=== PATIENT | male | born 1990 | race Caucasian/White ===

== ENCOUNTER 2016-11-28 01:18 | Emergency (ER) | payer BC ==
[2016-11-28] MEDS ORDERED: Albuterol/Ipratropium 3.0-0.5 MG/3 ML Neb Soln NEB ONE (01:20)
[2016-11-28] MEDS ORDERED: methylPREDNISolone Sodium Succinate 125 MG/2 ML SDV IM ONE (01:24)
--- NOTE | 2016-11-28 01:26 | EDM.PDOC ---
ED HPI GENERAL MEDICAL PROBLEM - General Chief Complaint: Respiratory Problem Stated Complaint: ASMATHA Time Seen by Provider: 11/28/16 01:24 Source of Information: Reports: Patient - History of Present Illness INITIAL COMMENTS - FREE TEXT/NARRATIVE: HISTORY AND PHYSICAL: History of present illness: Patient with history of asthma presents with shortness of breath or wheeze since 5 PM, he is out of his rescue inhaler at home No fever nausea vomiting chills sweats no chest pain headache dizziness or palpitation no bowel or urine symptoms Review of systems: As per history of present illness and below otherwise all systems reviewed and negative. Past medical history: As per history of present illness and as reviewed below otherwise noncontributory. Surgical history: As per history of present illness and as reviewed below otherwise noncontributory. Social history: No reported history of drug or alcohol abuse. Family history: As per history of present illness and as reviewed below otherwise noncontributory. Physical exam: HEENT: Atraumatic, normocephalic, pupils reactive, negative for conjunctival pallor or scleral icterus, mucous membranes moist, throat clear, neck supple, nontender, trachea midline. Lungs: Clear to auscultation, breath sounds equal bilaterally, chest nontender. Post DuoNeb Heart: S1S2, regular, negative for clicks, rubs, or JVD. Abdomen: Soft, nondistended, nontender. Negative for masses or hepatosplenomegaly. Negative for costovertebral tenderness. Pelvis: Stable nontender. Genitourinary: Deferred. Rectal: Deferred. Extremities: Atraumatic, negative for cords or calf pain. Neurovascular unremarkable. Neuro: Awake, alert, oriented. Cranial nerves II through XII unremarkable. Cerebellum unremarkable. Motor and sensory unremarkable throughout. Exam nonfocal. Diagnostics: []Chest 2 views Therapeutics: []DuoNeb Solu-Medrol 125 mg IM Albuterol HFA Medrol Dosepak Impression: []Asthma exacerbation Definitive disposition and diagnosis as appropriate pending reevaluation and review of above. no pain Pain Score (Numeric/FACES): 0 - Related Data Allergies Allergy/AdvReac Type Severity Reaction Status Date / Time amoxicillin Allergy Other Verified 11/28/16 01:25 Home Meds: Home Meds . [No Known Home Meds] 12/16/14 [History] Social & Family History - Tobacco Use Smoking Status *Q: Never Smoker - Recreational Drug Use Recreational Drug Use: No ED ROS GENERAL - Review of Systems Review Of Systems: ROS reveals no pertinent complaints other than HPI. ED EXAM, GENERAL - Physical Exam Exam: See Below Course - Vital Signs Last Recorded V/S: Last Vital Signs Temp 36.4 C 11/28/16 01:25 Pulse 120 H 11/28/16 01:25 Resp 24 H 11/28/16 01:25 BP 154/89 H 11/28/16 01:25 Pulse Ox 93 L 11/28/16 01:25 - Orders/Labs/Meds Orders: Active Orders 24 hr Category Date Time Status RT Aerosol Therapy [RC] ASDIRECTED Care 11/28/16 01:21 Active Chest 2V [CR] Stat Exams 11/28/16 01:24 Taken Meds: Medications Discontinued Medications Generic Name Dose Route Start Last Admin Trade Name Freq PRN Reason Stop Dose Admin Albuterol/Ipratropium 3 ml 11/28/16 01:20 11/28/16 01:26 Duoneb 3.0-0.5 Mg/3 Ml NEB 11/28/16 01:21 3 ml ONETIME ONE Administration Methylprednisolone Sodium Succinate 125 mg 11/28/16 01:24 11/28/16 01:28 Solu-Medrol IM 11/28/16 01:25 125 mg ONETIME ONE Administration Departure - Departure Time of Disposition: 01:55 Disposition: Home, Self-Care 01 Condition: Good Clinical Impression: Exacerbation of asthma - Discharge Information Forms: ED Department Discharge Additional Instructions: Medications as prescribed Return if symptoms persist or worsen Follow-up with primary care in 2 weeks sooner as needed [facility] - Primary Care [address] [place] [id number] The following information is given to patients seen in the emergency department who are being discharged to home. This information is to outline your options for follow-up care. We provide all patients seen in our emergency department with a follow-up referral. The need for follow-up, as well as the timing and circumstances, are variable depending upon the specifics of your emergency department visit. If you don't have a primary care physician on staff, we will provide you with a referral. We always advise you to contact your personal physician following an emergency department visit to inform them of the circumstance of the visit and for follow-up with them and/or the need for any referrals to a consulting specialist. The emergency department will also refer you to a specialist when appropriate. This referral assures that you have the opportunity for follow-up care with a specialist. All of these measure are taken in an effort to provide you with optimal care, which includes your follow-up. Under all circumstances we always encourage you to contact your private physician who remains a resource for coordinating your care. When calling for follow-up care, please make the office aware that this follow-up is from your recent emergency room visit. If for any reason you are refused follow-up, please contact the [facility] emergency department at and asked to speak to the emergency department charge nurse. - My Orders Last 24 Hours: My Active Orders 11/28/16 01:21 RT Aerosol Therapy [RC] ASDIRECTED 11/28/16 01:24 Chest 2V [CR] Stat - Assessment/Plan Last 24 Hours: My Active Orders 11/28/16 01:21 RT Aerosol Therapy [RC] ASDIRECTED 11/28/16 01:24 Chest 2V [CR] Stat
[2016-11-28 02:09] VITALS: BP 116/66
--- NOTE | 2016-11-28 15:52 | CR ---
EXAM DATE: 11/28/16 PATIENT'S AGE: 26 Patient: THANG LITTLE Facility: [place], [place] Site . Site : 1990 Study: XRay Chest [id number]/[id number] 1:48:21 AM Ordering Physician: Doctor Jackson Final Report: INDICATION: sob TECHNIQUE: Chest 2 views. COMPARISON: None. FINDINGS: Cardiovascular and mediastinum: Heart size and vasculature are normal in caliber and appearance. Mediastinum is within normal limits. Lungs and pleural spaces: Lungs are clear. No sign of infiltrate or mass. No sign of pleural effusion. No pneumothorax. Bones and soft tissues: No significant findings. IMPRESSION: Unremarkable chest. Dictated by: Dieudonne Delgadillo MD @ 11/28/2016 01:54:47 (Electronic Signature) Report Signed by Proxy. [facility]
== END 2016-11-28 02:07 | disposition home or self-care (01) ==
LOC: MW.ED 01:18
DX: J45.901 Unspecified asthma with (acute) exacerbation (principal); Z88.1 Allergy status to other antibiotic agents
CPT/HCPCS: 71020; 96372; 99284; J2930